=== PATIENT | female | born 1980 | race Caucasian/White ===

== ENCOUNTER 2020-01-14 00:42 | Outpatient (CLI) | payer BC, SELFPAY ==
[2020-01-14 19:19] LABS: SARS-CoV-2 RNA PCR Negative
== END 2020-01-14 00:43 | disposition home or self-care (01) ==
LOC: ANHCOVIDDT 00:42
PROVIDERS: Visit Provider Urology
DX: Z01.812 Encounter for preprocedural laboratory examination (principal); Z11.59 Encounter for screening for other viral diseases
CPT/HCPCS: 87635; C9803; U0003

== ENCOUNTER 2020-01-16 02:09 | Day surgery (SDC) | payer BC, SELFPAY ==
[2019-12-31 15:56] VITALS: BMI 30.4
--- NOTE | 2020-01-15 11:00 | P.PNAN_ITS ---
Anes - Initial Pre Proc Eval Procedure: Operation Date: 01/16/20 07:30 Proposed Procedures p Interstim Implant Phase One And Two Combined - Miki Alejandre MD Date/Time: 01/15/20 11:00 Surgeon: Miki Alejandre MD Pre Op Diagnosis: Over Active Bladder Patient Data Age: 39 Gender: F Height: 1.73 m Weight: 90.72 kg Allergies Allergy/AdvReac Type Severity Reaction Status Date / Time Penicillins Allergy Rash Verified 12/31/19 15:57 Home Medications Medication Instructions Recorded Confirmed Type amitriptyline 20 mg PO HS 12/31/19 12/31/19 History esomeprazole magnesium 40 mg PO HS 12/31/19 12/31/19 History levonorgestrel-ethinyl estrad 1 tablet PO DAILY 12/31/19 12/31/19 History [Introvale] montelukast 10 mg PO HS 12/31/19 12/31/19 History oxybutynin chloride 5 mg PO HS 12/31/19 12/31/19 History sertraline 50 mg PO HS 12/31/19 12/31/19 History Patient hx anesthesia problems: none Family hx anesthesia problems: none [facility] Past Medical History Medical History (Updated 01/14/20 @ 12:26 by Colton Mohamud DO) Anxiety Asthma GERD (gastroesophageal reflux disease) Surgical History Surgical History (Updated 01/14/20 @ 12:26 by Colton Mohamud DO) History of Social History Social History Smoking status: Never smoker Spiritual care concerns: No Anes - Eval Final PreProcedure Day of Procedure 01/15/20 11:00 Patient weight: obese Heart: regular rate and rhythm Lungs: clear to auscultation and normal air movement Airway: Mallampati scale class II Neurological: alert and oriented Last oral intake: >/= 8 hours ASA classification: II Emergent: no Anesthetic plan: proceed Anesthesia type and monitoring: general GIVS and standard monitoring Informed Consent: The patient's anesthetic plan and its attendant risks and benefits were discussed with the patient/family/POA. Questions were solicited and answers provided to the satisfaction of the patient/family/POA.
--- NOTE | ~2020-01-16 | XR_ITS ---
EXAMINATION: XR fl neurostim insert<1hr EXAM DATE: 01/16/2020 08:05 INDICATION: Stage I, stage II sacral neural stimulator implant. TECHNIQUE: Fluoroscopy used during XR fl neurostim insert<1hr performed by Dr. Miki Alejandre MD . The DAP for this procedure was1.3 mGym2. FINDINGS: There is a sacral neural stimulator appears to be entering the right S3-4 neural foramina. Correlate with procedure note. IMPRESSION: Fluoroscopy used during XR fl neurostim insert<1hr. Reviewed, dictated and finalized at location A.
[2020-01-16] MEDS: LACTATED RINGERS 1,000 ML 30 ML IV CONT (06:37)
--- NOTE | 2020-01-16 07:16 | WPDHPUPDATE1 ---
History and Physical Update Update Date/Time: 01/16/20 07:16 History and Physical has been reviewed, including an updated exam of the patient. There are NO changes in the patient's condition. Risks, benefits, and alternatives have been discussed and questions answered. Patient agrees to proceed with procedure.
[2020-01-16] MEDS: levoFLOXacin 500 MG/D5W 100 ML 500 MG/100 ML BAG 100 MG IVPB (07:30)
[2020-01-16 07:52] VITALS: BP 124/76; PULSE 86; RESP 18; TEMP 36.9; O2SAT 99
[2020-01-16] MEDS: BUPIVACAINE/EPINEPHRINE 0.25% 50 ML VIAL INFILTRATE (07:53)
[2020-01-16 08:14] VITALS: BP 128/69; PULSE 110; RESP 14; O2SAT 93
--- NOTE | 2020-01-16 08:18 | PM.PROC ---
Procedure Note - Detailed Date of procedure: 01/16/20 Pre-op diagnosis: Over Active Bladder Procedure performed: Placement of sacral Fluoroscopic guidance for needle placement Placement of implantable pulse generator Complex neurostimulator programming and impedance check Description of procedure: This patient has undergone a successful InterStim trial. He presents today for placement of a permanent device. Understanding the risks of bleeding, infection, lack of efficacy, need for repeat procedures, need for revision. They agree to proceed Dear correctly identified and informed consent was obtained. There brought to the operating room. Placed in the prone position. There given appropriate anesthesia. There prepped and draped in a sterile fashion. A time-out performed. I used fluoroscopy to identify my sacral landmarks in the AP and lateral orientation. I anesthetized the skin. I into the sacral foramen on the left and the right. I monitored the needle fluoroscopy. I entered right and left S3 foramen. I stimulated the needle and got appropriate response at low thresholds. I made a skin belia. I placed a stylet and the lead introducer sheath. I then placed and deployed by lead again under fluoroscopy. I marked out the site of the future pulse generator. I anesthetized the skin. I made an incision. I created a subcutaneous pocket. I obtained hemostasis. I irrigated out the wound. I then tunneled the lead towards this pocket. Appropriate connections were made between the lead and battery. The battery was programmed. It was placed in the pocket. Impedances were checked and found to be normal. I once again assured hemostasis. I irrigated out all wounds. I closed the subcu with 2 0 Vicryl. Skin with 4 0 Vicryl. Glue was applied. They were then awakened and transferred to the PACU in stable condition. Implants: Neuromodulation device Anesthesia: MAC and local Surgeon: Miki Alejandre MD Drains: No Packing: No Pathology: none sent Complications: No immediate complications Condition: stable Disposition: PACU
--- NOTE | 2020-01-16 08:39 | SUR.PHASEII ---
[id number] [employer] REP SPEAKING WITH PT.
[2020-01-16 08:40] VITALS: BP 144/67; PULSE 84; RESP 14; O2SAT 94
[2020-01-16 09:05] VITALS: BP 120/64; PULSE 76; RESP 14
== END 2020-01-16 09:16 | disposition home or self-care (01) ==
PROVIDERS: Visit Provider Urology
PROC: (CPT 64581; principal; 2020-01-16 07:30)
DX: N32.81 Overactive bladder (principal); J45.909 Unspecified asthma, uncomplicated; K21.9 Gastro-esophageal reflux disease without esophagitis; F41.9 Anxiety disorder, unspecified; E66.9 Obesity, unspecified; Z68.33 Body mass index [BMI] 33.0-33.9, adult
CPT/HCPCS: 64581; 64590; A9270; C1767; C1778; C1787; C1894; J1956; J2250; J2704; J3010; J7120